=== PATIENT | male | born 1960 | race Caucasian/White ===

== ENCOUNTER 2017-01-09 06:34 | Day surgery (SDC) | payer BC ==
[~2017-01-09 06:34] MED LIST: Lactated Ringers 1,000 ML IV SCH
[2017-01-09] MEDS ORDERED: fentaNYL 100 MCG/2 ML SDV ONE (07:52)
[2017-01-09] MEDS ORDERED: Propofol 200 MG/20 ML SDV ONE ×2 (07:52→08:15)
[2017-01-09 08:59] VITALS: BP 120/70
--- NOTE | 2017-01-09 12:07 | OR ---
DATE OF SURGERY: 01/09/2017. REFERRING PROVIDER: Matthew Whitaker MD. PRE-OPERATIVE DIAGNOSES: History of colon polyps with last colonoscopy in 2008. No known family history of colon cancer or colon polyps. POST-OPERATIVE DIAGNOSIS: Minimal diverticulosis, otherwise, normal colonoscopy. PROCEDURE: Colonoscopy. SURGEON: Campos Mar M.D. ANESTHESIA: Monitored anesthesia care. BOWEL PREP: Good. DESCRIPTION OF OPERATION: Joe is a 56-year-old male who was brought to the endoscopy suite after discussing risks and benefits of the procedure. Informed consent was obtained for conscious sedation and colonoscopy with or without biopsy and/or polypectomy. We also discussed possibility of missed lesions. Pre-procedure exam was unremarkable. IV, oxygen, and monitors were placed. The patient was placed in the left lateral decubitus position. Sedation was administered and a digital rectal exam performed and unremarkable. Colonoscope was passed into the rectum and slowly advanced all the way to the cecum. Cecum was viewed and photographed. The colonoscope was slowly withdrawn and the mucosa was closed observed in a direct circumferential manner. The ascending colon was unremarkable. The transverse colon was unremarkable. The descending colon and sigmoid colon revealed some minimal diverticulosis. Retroflexion was performed. Rectal mucosa was unremarkable. Scope was removed. The patient tolerated the procedure well. The patient was monitored until that baseline status. Discharge instructions were reviewed and the patient was discharged in good condition. COMPLICATIONS: None. TOTAL TIME: 18 minutes. ESTIMATED BLOOD LOSS: None. RECOMMENDATIONS/FOLLOW-UP: We will recommend a repeat colonoscopy again in 5 years given his previous history of tubular adenoma. I would like to kindly thank Matthew Whitaker MD for this referral. DMB: 01/09/2017 08:35:48 MODL: 01/09/2017 10:51:59 /[id number]
== END 2017-01-09 10:10 | disposition home or self-care (01) ==
LOC: VM.SDS 06:34
PROVIDERS: ATTEND Family Medicine
DX: Z12.11 Encounter for screening for malignant neoplasm of colon (principal); Z86.010 Personal history of colon polyps; K57.30 Diverticulosis of large intestine without perforation or abscess without bleeding; I10 Essential (primary) hypertension; E78.00 Pure hypercholesterolemia, unspecified; E11.9 Type 2 diabetes mellitus without complications; F41.9 Anxiety disorder, unspecified; F32.9 Major depressive disorder, single episode, unspecified; Z90.49 Acquired absence of other specified parts of digestive tract; Z98.890 Other specified postprocedural states
CPT/HCPCS: 45378; 82962; J2704; J3010; J7120